=== PATIENT | male | born 1945 | race Caucasian/White ===

== ENCOUNTER 2016-02-24 08:30 | Emergency (ER) | payer OTHER, BC ==
[2016-02-24 08:46] VITALS: BP 167/97; PULSE 71; RESP 16; TEMP 98.1; O2SAT 97
--- NOTE | 2016-02-24 09:21 | UCPHY ---
H & P Time Seen by Provider: 02/24/16 08:50 Patient Type: Established HPI/ROS: This patient has a one-week history of sinus congestion and maxillary facial pain in the left side the increases when he bends forward. The intensity of symptoms are moderate. He has occasional cough as well that is productive since yesterday. He reports associated vertigo with movement that is mild. Finally, he reports mild subjective fevers. ROS: No chills. No other constitutional symptoms pulmonary: No pleuritic pain or shortness of breath HEENT: No ear pain. No tinnitus. Cardiovascular: No chest pain or lightheadedness. No lower extremity swelling. 7 point ROS is otherwise negative. Smoking Status: Never smoked Physical Exam: Physical Exam Vital signs are normal. General: Pleasant 70-year-old male No acute distress HEENT: Nose: Swollen nasal mucosa with sinus tenderness to percussion at the left maxillary sinus. Ears: External canals and TMs are clear oropharynx: No erythema exudates or dysphonia. Eyes: Pupils equal and react to light. Extraocular motions are intact. Neck: Supple with no meningismus. No lymphadenopathy Lungs: Clear to auscultation with no rales, rhonchi or wheeze. No respiratory distress. Cardiac: Regular rate and rhythm with no murmur gallop or rub. Skin: No rash or pallor. Neuro: Alert and oriented x3 with no sensorimotor deficits. With head movement he has mild vertigo. No deficits to fine motor movements. No lateral nystagmus Initial differential diagnosis: Maxillary bacterial sinusitis versus viral rhinosinusitis, benign positional vertigo, cough, bronchitis Constitutional: Initial Vital Signs Temperature (C) 36.7 C 02/24/16 08:35 Heart Rate 71 02/24/16 08:35 Respiratory Rate 16 02/24/16 08:35 Blood Pressure 167/97 H 02/24/16 08:35 O2 Sat (%) 97 02/24/16 08:35 O2 Delivery Mode Room Air Allergies/Adverse Reactions: No Known Allergies Allergy (Verified 05/17/15 08:52) Home Medications: Medication Instructions Recorded Atorvastatin Calcium 07/04/13 Sertraline HCl 07/04/13 Albuterol Hfa Anes Only [Proair 2 puffs IH Q4 PRN #1 mdi 02/24/16 Hfa Icu (*)] Azithromycin [Zithromax] 250 mg PO DAILY #6 tab 02/24/16 Fluticasone Nasal [Flonase Nasal 2 sprays NASAL DAILY #1 mdi 02/24/16 [place] (RX)] MDM/Departure - [facility] ED Course/Re-evaluation: Patient does not appear toxic. He has no focal neuro deficits that would suggest a central vertigo. No clinical evidence of lower respiratory infection. - Depart Disposition: Home, Routine, Self-Care Clinical Impression: Cough Sinusitis Qualifiers: Sinusitis location: maxillary Chronicity: acute Recurrence: non-recurrent Qualifier Code: (J01.00) Acute maxillary sinusitis, unspecified Condition: Good Instructions: Sinusitis (ED) Additional Instructions: Diagnoses: 1. Acute sinusitis 2. Cough Plan: Humidifier Flonase steroid nasal spray diminish sinus pressure. Zithromax antibiotic Albuterol inhaler for cough, wheeze or shortness of breath Return for any significant worsening despite the treatment plan Prescriptions: Fluticasone Nasal [Flonase Nasal [place] (RX)] 2 sprays NASAL DAILY #1 mdi Albuterol Hfa Anes Only [Proair Hfa Icu (*)] 2 puffs IH Q4 PRN #1 mdi PRN Reason: Wheezing Azithromycin [Zithromax] 250 mg PO DAILY #6 tab [place]errals: [place],. [Primary Care Provider] - As per Instructions - PQRS PQRS Measurement: 134: Depression screening and followup, PRIME MD-PHQ2 (12 years and older) Over the last 2 weeks, how often have you been bothered by any of the following problems? 1. Feeling down, depressed, or hopeless? 2. Little interest or pleasure in doing things? Patient answered no to both 1 and 2 130: Documentation of medications. Reviewed all patient medications, doses, route and frequency. 226: Do you smoke? [No.] 47: 65 and older: Advanced care planning. Patient designates surrogate decision maker as spouse. 51: 18 years old and older with diagnosis of COPD, spirometry performance. NA 52: 18 years old and older with COPD and symptoms of COPD or FEV1<60% predicted prescribed a B Agonist. NA
== END 2016-02-24 09:23 | disposition home or self-care (01) ==
LOC: CED 08:30
DX: J01.90 Acute sinusitis, unspecified (principal); R05 Cough
CPT/HCPCS: 87400-PO; G0463-PO

== ENCOUNTER 2016-05-08 10:46 | Emergency (ER) | payer OTHER, BC ==
[2016-05-08 11:33] VITALS: BP 140/98; PULSE 74; RESP 18; TEMP 98.2; O2SAT 95
--- NOTE | 2016-05-08 11:48 | UCPHY ---
H & P Patient Type: Established Chief Complaint Nursing Narrative: pt states unable to hear out of right ear after swimming 5 days ago. no comploints of pain drainage, fever. Time Seen by Provider: 05/08/16 11:21 HPI/ROS: Chief complaint: Difficulty hearing out of right ear HPI: 71-year-old male past medical history of frequent cerumen impaction presenting with difficulty hearing out of his right ear for the last 5 days. This started after he went swelling several days ago. No pain. No discharge from the ear. He does use Q-tips but states he does not put them into his ear canal only creams outside. He is at her with your wax for plan of years. No fevers or chills. No headache. No nausea or vomiting. ROS: 10 point Review of Systems is negative except as noted in the HPI. Past medical history: None Medications: None Allergies: No known drug allergies Social history: Nonsmoking Physical exam: General: Awake, alert, no acute distress Ears: He has bilateral cerumen impactions right greater than left. Once cleared the TMs were normal - Personal History Current Tetanus/Diphtheria Vaccine: No Current Tetanus Diphtheria and Acellular Pertussis (TDAP): No - Medical/Surgical History Hx Asthma: No Hx Chronic Respiratory Disease: No Hx Diabetes: No Hx Cardiac Disease: No Hx Renal Disease: No Hx Cirrhosis: No Hx Alcoholism: No Hx HIV/AIDS: No Hx Splenectomy or Spleen Trauma: No Other PMH: PMH: CHOLESTEROL,HEPATITIS AND ANEMIA CHILD, PTSD - Family History Significant Family History: No pertinent family hx - Social History Smoking Status: Never smoked Constitutional: Initial Vital Signs Temperature (C) 36.8 C 05/08/16 11:28 Heart Rate 74 05/08/16 11:28 Respiratory Rate 18 05/08/16 11:28 Blood Pressure 140/98 H 05/08/16 11:28 O2 Sat (%) 95 05/08/16 11:28 O2 Delivery Mode Room Air Allergies/Adverse Reactions: No Known Allergies Allergy (Verified 05/08/16 11:26) Home Medications: Medication Instructions Recorded Atorvastatin Calcium 07/04/13 Sertraline HCl 07/04/13 Medical Decision Making Procedures: Procedure: Cerumen removal right ear After a physical exam was performed cerumen needed to be removed from the patient's ear canal. The indication of the procedure was cerumen impaction and inability to complete the ear exam. The procedure was performed with an ear curette and water irrigation. The patient tolerated the procedure well. The procedure was performed by myself. Procedure: Cerumen removal left ear After a physical exam was performed cerumen needed to be removed from the patient's ear canal. The indication of the procedure was cerumen impaction and inability to complete the ear exam. The procedure was performed with an ear curette and water irrigation. The patient tolerated the procedure well. The procedure was performed by myself. Departure - Departure Disposition: Home, Routine, Self-Care Clinical Impression: Cerumen impaction Condition: Good Instructions: Cerumen Impaction (ED) Additional Instructions: Asked her pharmacist about Cerumenex or other ear wax softening drops. Referrals: NONE *PRIMARY CARE P,. [Primary Care Provider] - As per Instructions - PQRS PQRS Measurement: 134: Depression screening and followup, PRIME MD-PHQ2 (12 years and older) Over the last 2 weeks, how often have you been bothered by any of the following problems? 1. Feeling down, depressed, or hopeless? 2. Little interest or pleasure in doing things? Patient answered no to both 1 and 2 130: Documentation of medications. Reviewed all patient medications, doses, route and frequency. 226: Do you smoke? No. 47: 65 and older: Advanced care planning. Patient designates surrogate decision maker as. Patient refused. 51: 18 years old and older with diagnosis of COPD, spirometry performance. Patient has no history of COPD 52: 18 years old and older with COPD and symptoms of COPD or FEV1<60% predicted prescribed a B Agonist. Spirometry not performed; equipment not available.
== END 2016-05-08 11:54 | disposition home or self-care (01) ==
LOC: CED 10:46
PROC: 3E1B78Z Irrigation of Ear using Irrigating Substance, Via Natural or Artificial Opening (ICD-10-PCS; principal; 2016-05-08)
DX: H61.21 Impacted cerumen, right ear (principal)
CPT/HCPCS: 69209; G0463; 69210-PO; 99213-PO

== ENCOUNTER 2017-02-16 11:15 | Emergency (ER) | payer OTHER, BC ==
[2017-02-16 11:27] VITALS: RESP 18
--- NOTE | 2017-02-16 13:07 | EDPHY ---
H & P Time Seen by Provider: 02/16/17 12:08 HPI/ROS: CHIEF COMPLAINT: Cough HISTORY OF PRESENT ILLNESS: 71-year-old male presents to the emergency department complaining of ongoing cough. The patient was diagnosed with influenza 1 month ago and since that time has had an ongoing lingering cough. He also states that he is having some facial pain. He has a history of frequent sinus infections. He is concerned that he may have pneumonia and possible sinus infection. His was admitted to the hospital yesterday with pneumonia. He denies any other pain in his chest, fevers or chills, abdominal pain or vomiting. No calf pain or swelling. He has seen his primary care provider twice for the cough and was given Tessalon Perles and codeine cough medication which she did not tolerate. REVIEW OF SYSTEMS: Constitutional: No fever, no chills. Eyes: No double or blurry vision. ENT: No sore throat. Respiratory: Cough as above. No shortness of breath. Cardiac: No chest pain. Gastrointestinal: No abdominal pain, vomiting or diarrhea. Genitourinary: No dysuria. Musculoskeletal: No neck or back pain. Skin: No rashes. Neurological: No headache. Past Medical/Surgical History: Dyslipidemia, anemia and hepatitis as a child, PTSD Social History: Smoking Status: Former smoker Physical Exam: General Appearance: Alert, no distress. Afebrile. 94% on room air. Eyes: Pupils equal and round. Extraocular motions are all intact. ENT: Mouth: Mucous membranes moist. Mild pain with palpation over left frontal and left maxillary sinus. Mild congestion noted. Respiratory: No wheezing, rhonchi, or rales, lungs are clear to auscultation. Cardiovascular: Regular rate and rhythm. Gastrointestinal: Abdomen is soft and nontender, no masses, no rebound or guarding, bowel sounds normal. Neurological: Alert and oriented x 3, cranial nerves II through XII grossly intact Skin: Warm and dry, no rashes. Musculoskeletal: Nontender to palpate along the cervical, thoracic or lumbar spine. Neck is supple. Extremities: Full range of motion and no peripheral edema. Psychiatric: Patient is oriented X 3, there is no agitation. Constitutional: Initial Vital Signs Temperature (C) 36.5 C 02/16/17 11:24 Heart Rate 66 02/16/17 11:24 Respiratory Rate 18 02/16/17 11:24 Blood Pressure 136/82 H 02/16/17 11:24 O2 Sat (%) 94 02/16/17 11:24 O2 Delivery Mode Room Air Allergies/Adverse Reactions: No Known Allergies Allergy (Verified 02/16/17 11:23) Home Medications: Medication Instructions Recorded Atorvastatin Calcium 07/04/13 Sertraline HCl 07/04/13 levOFLOXACIN [levAQUIN (*)] 750 mg PO DAILY #5 tab 02/16/17 Medical Decision Making - Diagnostics Imaging Results: Imaging Impressions Chest X-Ray 02/16/17 12:16 Impression: Hazy left basilar opacities on PA view, without definite correlate on lateral view, may represent a prominent epicardial fat pad, less likely a true consolidation. Consider repeat chest x-ray in 6-[address] Johnson discussed these findings by telephone with ZAINAB HURTADO on 2017 13:10 hours. Imaging: Discussed imaging studies w/ call center analyst Radiologist, I viewed and interpreted images myself ED Course/Re-evaluation: 71-year-old male presents to the emergency department with cough and concerns about pneumonia possible sinusitis. Chest x-ray reveals no obvious infiltrate although difficult to appreciate in the left lower lobe. I did discuss this with the radiologist, Dr. Liban Jane, who recommended obtaining repeat chest x-ray in 6-8 weeks. The radiologist stated that it is not clear whether the haziness in the left border could represent left lower lobe pneumonia although this does not suggest that on the lateral chest x-ray. This also could be related to epicardial fat pad. Patient was advised to have repeat chest x-ray in 6-8 weeks as discussed. Patient verbalized understanding and agreed. The patient has a history of frequent sinus infections. He feels that he likely has another sinus infection. He typically takes Levaquin for this. Given that left lower lobe infiltrate cannot be completely excluded, the patient will be started on Levaquin to treat both for possible pneumonia and sinusitis. Patient was told to follow up with primary care provider to recheck this week. Differential Diagnosis: Including but not limited to pneumonia, bronchitis, influenza, sinusitis, viral upper respiratory infection, pneumothorax Departure - Departure Disposition: Home, Routine, Self-Care Clinical Impression: Cough Sinusitis Qualifiers: Sinusitis location: frontal Chronicity: acute Recurrence: non-recurrent Qualified Code(s): J01.10 - Acute frontal sinusitis, unspecified Condition: Good Instructions: Chronic Cough (ED) Additional Instructions: Levaquin as directed for 5 days. The radiologist recommends that you have a repeat chest x-ray in 6-8 weeks Referrals: Mily Dykes MD [Primary Care Provider] - 2-3 days without fail Prescriptions: levOFLOXACIN [levAQUIN (*)] 750 mg PO DAILY #5 tab
[2017-02-16 14:00] VITALS: BP 129/94; PULSE 85; TEMP 98.6; O2SAT 96
== END 2017-02-16 13:56 | disposition home or self-care (01) ==
DX: J01.10 Acute frontal sinusitis, unspecified (principal); Z87.891 Personal history of nicotine dependence

== ENCOUNTER → 2017-04-09 | Outpatient (CLI) | payer OTHER, BC | LOC: CIMAGING 09:13 | PROVIDERS: ATTEND Physician Assistant | DX: Z09 Encounter for follow-up examination after completed treatment for conditions other than malignant neoplasm (principal); Z87.09 Personal history of other diseases of the respiratory system | CPT/HCPCS: 71046-PO ==